=== PATIENT | male | born 2000 | race American Indian/Alaskan Native ===

== ENCOUNTER 2020-06-07 00:08 | Emergency (ER) | payer SELFPAY ==
[2020-06-07 00:24] VITALS: BP 148/71; PULSE 50
--- NOTE | 2020-06-07 00:49 | EDM.PDOC ---
ED HPI GENERAL MEDICAL PROBLEM - General Chief Complaint: General Stated Complaint: SOB Time Seen by Provider: 06/07/20 00:43 Source of Information: Reports: Patient, Family, RN Notes Reviewed History Limitations: Reports: No Limitations - History of Present Illness INITIAL COMMENTS - FREE TEXT/NARRATIVE: 19-year-old gentleman presents emergency department with a complaint of panic attacks and anxiety, he has a history of this he has had a couple panic attacks in the past however this was quite severe felt like his heart was beating through his chest short of breath that he was going to . He feels better now has calm down some - Related Data Allergies Allergy/AdvReac Type Severity Reaction Status Date / Time No Known Allergies Allergy Verified 06/07/20 00:12 Home Meds: Home Meds Albuterol [Ventolin HFA] 2 puff INH Q6H 08/20/14 [History] Loratadine 10 mg PO DAILY 08/20/14 [History] Past Medical History Psychiatric History: Reports: Anxiety, Panic Attack Dermatologic History: Reports: Eczema Other Dermatologic History: severe seasonal and environmental allergies Social & Family History - Tobacco Use Tobacco Use Status *Q: Former Tobacco User Used Tobacco, but Quit: Yes Month/Year Tobacco Last Used: 03/2018 Second Hand Smoke Exposure: Yes - Caffeine Use Caffeine Use: Reports: Energy Drinks, Soda, Tea - Recreational Drug Use Drug Use in Last 12 Months: No Recreational Drug Type: Reports: Marijuana/Hashish Recreational Drug Use Frequency: Socially ED ROS GENERAL - Review of Systems Review Of Systems: See Below Constitutional: Reports: No Symptoms HEENT: Reports: No Symptoms Respiratory: Reports: Shortness of Breath Cardiovascular: Reports: Chest Pain, Dyspnea on Exertion, Palpitations ED EXAM, GENERAL - Physical Exam Exam: See Below Exam Limited By: No Limitations General Appearance: Alert, WD/WN, No Apparent Distress Respiratory/Chest: No Respiratory Distress, Lungs Clear, Normal Breath Sounds, No Accessory Muscle Use, Chest Non-Tender Cardiovascular: Regular Rate, Rhythm, No Murmur GI/Abdominal: Soft, Non-Tender Course - Vital Signs Last Recorded V/S: Last Vital Signs Temp 98.3 F 06/07/20 00:23 Pulse 50 L 06/07/20 00:23 Resp 16 06/07/20 00:23 BP 148/71 H 06/07/20 00:23 Pulse Ox 100 06/07/20 00:23 - Orders/Labs/Meds Orders: Active Orders 24 hr Category Date Time Status LORazepam [Ativan] Med 06/07/20 00:46 Once 0.5 mg PO ONETIME ONE Medication Orders Lorazepam (Lorazepam 0.5 Mg Tab) 0.5 mg PO ONETIME ONE Stop: 06/07/20 00:47 Meds: Medications Generic Name Dose Route Start Last Admin Trade Name Jaelyn PRN Reason Stop Dose Admin Lorazepam 0.5 mg 06/07/20 00:46 Lorazepam 0.5 Mg Tab PO 06/07/20 00:47 ONETIME ONE Departure - Departure Time of Disposition: 00:49 Disposition: Home, Self-Care 01 Condition: Fair Clinical Impression: Panic attack - Discharge Information Instructions: Panic Attack, [id number] Referrals: PCP,None [Primary Care Provider] - Additional Instructions: Try a half a tablet to full tablet as needed whenever your symptoms become severe, please followup with your primary care provider in 3-5 days if not better, please call return to the emergency department with worsening of symptoms. Sepsis Event Note (ED) - Evaluation Sepsis Screening Result: No Definite Risk - Focused Exam Vital Signs: Vital Signs Temp Pulse Resp BP Pulse Ox 06/07/20 00:23 98.3 F 50 L 16 148/71 H 100 - My Orders Last 24 Hours: My Active Orders 06/07/20 00:46 LORazepam [Ativan] 0.5 mg PO ONETIME ONE - Assessment/Plan Last 24 Hours: My Active Orders 06/07/20 00:46 LORazepam [Ativan] 0.5 mg PO ONETIME ONE Plan: Assessment Acuity = acute Site and laterality = panic attacks Etiology = unknown Manifestations = palpitations, dyspnea now resolved Location of injury = Home Lab values = none Plan Counseled on anxiety, prescription written for Ativan 1 mg p.o. 3 times daily as needed total #10 follow-up primary care for further evaluation This note was dictated using [employer] voice recognition software please call with any questions on syntax or grammar.
[2020-06-07] MEDS: LORazepam 0.5 MG Tab PO ONE (00:51)
== END 2020-06-07 01:02 | disposition home or self-care (01) ==
LOC: JP.ED 00:08
DX: F41.0 Panic disorder [episodic paroxysmal anxiety] (principal); Z87.891 Personal history of nicotine dependence
CPT/HCPCS: 99283; A9270

== ENCOUNTER 2020-07-15 13:45 | Emergency (ER) | payer OTHER ==
[2020-07-15 14:04] VITALS: BP 145/65; PULSE 61
[2020-07-15] MEDS ORDERED: Ketorolac 60 MG/2 ML SDV IM ONE (14:17)
--- NOTE | 2020-07-15 14:20 | EDM.PDOC ---
ED HPI GENERAL MEDICAL PROBLEM - General Chief Complaint: Genitourinary Problem Stated Complaint: GROIN PAIN Time Seen by Provider: 07/15/20 14:10 Source of Information: Reports: Patient, RN Notes Reviewed History Limitations: Reports: No Limitations - History of Present Illness INITIAL COMMENTS - FREE TEXT/NARRATIVE: 19-year-old gentleman presents emergency department today with complaint of left testicular pain, he states is been there for about 2 days it has been a couple days since he has had unprotected intercourse. He has not had any fevers no drainage no trauma - Related Data Allergies Allergy/AdvReac Type Severity Reaction Status Date / Time No Known Allergies Allergy Verified 07/15/20 13:57 Home Meds: Home Meds NK [No Known Home Meds] 07/15/20 [History] Past Medical History Psychiatric History: Reports: Anxiety, Panic Attack Dermatologic History: Reports: Eczema Other Dermatologic History: severe seasonal and environmental allergies Social & Family History - Caffeine Use Caffeine Use: Reports: Energy Drinks, Soda, Tea ED ROS GENERAL - Review of Systems Review Of Systems: See Below Constitutional: Reports: No Symptoms GI/Abdominal: Reports: No Symptoms : Reports: Other (Left testicular pain). Denies: Discharge, Dysuria, Frequency ED EXAM, RENAL/ - Physical Exam Exam: See Below Text/Narrative:: Examination of the genitalia Gurmeet stage V male circumcised I do feel hydrocele left testicle there is no change in pain with elevation of the testicle no lesions noted Exam Limited By: No Limitations General Appearance: Alert, WD/WN, No Apparent Distress Respiratory/Chest: No Respiratory Distress Course - Vital Signs Last Recorded V/S: Last Vital Signs Temp 96.8 F L 07/15/20 14:03 Pulse 61 07/15/20 14:03 Resp 14 07/15/20 14:03 BP 145/65 H 07/15/20 14:03 Pulse Ox 99 07/15/20 14:03 - Orders/Labs/Meds Orders: Active Orders 24 hr Category Date Time Status Scrotal Duplex Ltd [US] Stat Exams 07/15/20 15:20 Taken Scrotum and Contents [US] Stat Exams 07/15/20 14:17 Taken cefTRIAXone [Rocephin] Med 07/15/20 16:00 Once 250 mg IM ONETIME ONE Meds: Medications Discontinued Medications Generic Name Dose Route Start Last Admin Trade Name Freq PRN Reason Stop Dose Admin Ketorolac Tromethamine 60 mg 07/15/20 14:17 07/15/20 14:26 Ketorolac 60 Mg/2 Ml Sdv IM 07/15/20 14:18 60 mg ONETIME ONE Administration Departure - Departure Time of Disposition: 16:02 Disposition: Home, Self-Care 01 Condition: Fair Clinical Impression: Varicocele - Discharge Information Instructions: Varicocele Referrals: PCP,None [Primary Care Provider] - Forms: ED Department Discharge Additional Instructions: Take full course of antibiotics, please followup with your primary care provider in 3-5 days if not better, please call return to the emergency department with worsening of symptoms. Recommend calling the [facility] in [place] for an appointment time if not better Sepsis Event Note (ED) - Evaluation Sepsis Screening Result: No Definite Risk - Focused Exam Vital Signs: Vital Signs Temp Pulse Resp BP Pulse Ox 07/15/20 14:03 96.8 F L 61 14 145/65 H 99 - My Orders Last 24 Hours: My Active Orders 07/15/20 14:17 Scrotum and Contents [US] Stat 07/15/20 15:20 Scrotal Duplex Ltd [US] Stat 07/15/20 16:00 cefTRIAXone [Rocephin] 250 mg IM ONETIME ONE - Assessment/Plan Last 24 Hours: My Active Orders 07/15/20 14:17 Scrotum and Contents [US] Stat 07/15/20 15:20 Scrotal Duplex Ltd [US] Stat 07/15/20 16:00 cefTRIAXone [Rocephin] 250 mg IM ONETIME ONE Plan: Assessment Acuity = acute Site and laterality = varicocele left testicle Etiology = unknown Manifestations = none Location of injury = Home Lab values = ultrasound shows varicocele no epididymitis Plan Given his sexual history concerned about STDs have seen a recent increase in the amount of chlamydia and gonorrhea in population in young people elected to treat empirically with 250 mg Rocephin IM x1 and doxycycline 100 mg p.o. twice daily x10 days follow-up primary care 3 to 5 days if no improvement This note was dictated using [employer] recognition software please call with any questions on syntax or grammar.
[2020-07-15] MEDS ORDERED: cefTRIAXone 500 MG Vial IM ONE (16:00)
--- NOTE | 2020-07-17 09:35 | US ---
Scrotum and Contents, Scrotal Duplex Ltd CLINICAL HISTORY: Left testicle pain FINDINGS: Doppler spectra shows normal flow to both testes. The right testicle measures 5.0 x 1.9 x 2.9 cm. The right epididymis has a normal appearance. There is a small hydrocele The left testicle measures 5.0 x 1.8 x 2.7 cm. The left epididymis has a normal appearance. There is a left-sided varicocele IMPRESSION: Small right hydrocele Left-sided varicocele Normal-appearing testicles
== END 2020-07-15 16:37 | disposition home or self-care (01) ==
LOC: JP.ED 13:45
DX: I86.1 Scrotal varices (principal)
CPT/HCPCS: 76870; 93976; 96372; 99283; 99284; J0696; J1885

== ENCOUNTER 2020-10-15 22:31 | Emergency (ER) | payer SELFPAY ==
[2020-10-15 22:49] VITALS: BP 124/47; PULSE 53
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
--- NOTE | 2020-10-16 10:56 | CR ---
Forearm 2V Rt CLINICAL HISTORY: Pain FINDINGS: There is no acute fracture within the forearm. IMPRESSION: Negative right forearm.
== END 2020-10-15 23:40 | disposition home or self-care (01) ==
LOC: JP.ED 22:31
DX: S50.11XA Contusion of right forearm, initial encounter (principal); Z72.0 Tobacco use; Y04.0XXA Assault by unarmed brawl or fight, initial encounter
CPT/HCPCS: 73090-26-RT; 73090-RT; 99284-25

== ENCOUNTER 2020-11-21 00:26 | Emergency (ER) | payer SELFPAY ==
[2020-11-21] MEDS ORDERED: hydrOXYzine HCl 25 MG Tab PO ONE (00:57)
[2020-11-21 00:59] VITALS: BP 134/84; PULSE 64
--- NOTE | 2020-11-21 01:05 | EDM.PDOCBH ---
ED HPI GENERAL MEDICAL PROBLEM - General Chief Complaint: Behavioral/Psych Stated Complaint: PANIC ATTACK Time Seen by Provider: 11/21/20 00:40 Source of Information: Reports: Patient, Family History Limitations: Reports: No Limitations - History of Present Illness INITIAL COMMENTS - FREE TEXT/NARRATIVE: 19-year-old male with chronic anxiety, is under a lot of stress because he has a court date coming up in January that may result in fdc time. He was taking hydroxyzine on a as needed basis and ran out 3 days ago, they have been working on getting him an appointment but do not have a refill yet. No chest pain or shortness of breath, just having difficulty sleeping and relative uneasiness. Onset: Gradual Duration: Chronic Associated Symptoms: Reports: No Other Symptoms. Denies: Confusion, Chest Pain, Headaches, Nausea/Vomiting, Shortness of Breath - Related Data Allergies Allergy/AdvReac Type Severity Reaction Status Date / Time No Known Allergies Allergy Verified 11/21/20 00:55 Home Meds: Home Meds hydrOXYzine HCL [hydrOXYzine] 50 mg IM Q6H 11/21/20 [History] Past Medical History - Past Health History Medical/Surgical History: Denies Medical/Surgical History Psychiatric History: Reports: Anxiety, Panic Attack Dermatologic History: Reports: Eczema Other Dermatologic History: severe seasonal and environmental allergies Social & Family History - Tobacco Use Tobacco Use Status *Q: Never Tobacco User - Caffeine Use Caffeine Use: Reports: Coffee, Tea - Recreational Drug Use Recreational Drug Use: No ED ROS GENERAL - Review of Systems Review Of Systems: See Below Constitutional: Denies: Fever, Chills HEENT: Denies: Vision Change Respiratory: Denies: Shortness of Breath Cardiovascular: Denies: Chest Pain, Palpitations GI/Abdominal: Denies: Nausea, Vomiting Neurological: Reports: Dizziness. Denies: Headache Psychiatric: Reports: Anxiety, Other (Difficulty sleeping, insomnia) ED EXAM, BEHAVIORAL HEALTH - Physical Exam Exam: See Below Exam Limited By: No Limitations General Appearance: Alert, No Apparent Distress, Anxious Eye Exam: Bilateral Eye: Normal Inspection Head: Atraumatic Neck: Supple, Non-Tender Respiratory/Chest: Lungs Clear Cardiovascular: Regular Rate, Rhythm. No: Tachycardia Extremities: Normal Inspection Neurological: Alert, Normal Mood/Affect Psychiatric: Flat Affect COURSE, BEHAVIORAL HEALTH COMP - Course Vital Signs: Last Vital Signs Temp 97.6 F 11/21/20 01:00 Pulse 64 11/21/20 01:00 Resp 16 11/21/20 01:00 BP 134/84 11/21/20 01:00 Pulse Ox 99 11/21/20 01:00 Orders, Labs, Meds: Medications Discontinued Medications Generic Name Dose Route Start Last Admin Trade Name Jaelyn PRN Reason Stop Dose Admin Hydroxyzine HCl 25 mg 11/21/20 00:57 11/21/20 01:11 Hydroxyzine Hcl 25 Mg Tab PO 11/21/20 00:58 25 mg ONETIME ONE Administration Re-Assessment/Re-Exam: Patient was given 1 25 mg oral dose of hydroxyzine, and a prescription for 10 additional doses without refill. He needs to establish primary care for any further refills. Departure - Departure Time of Disposition: 01:13 Disposition: Home, Self-Care 01 Clinical Impression: Anxiety - Discharge Information Instructions: Managing Anxiety, Adult Referrals: PCP,None [Primary Care Provider] - Forms: ED Department Discharge Care Plan Goals: Take hydroxyzine as directed no more than 3 times daily, and recheck with her primary provider sometime in the next week to establish further care or medications. Sepsis Event Note (ED) - Focused Exam Vital Signs: Vital Signs Temp Pulse Resp BP Pulse Ox 11/21/20 01:00 97.6 F 64 16 134/84 99 11/21/20 00:54 97.6 F 64 134/84 99
== END 2020-11-21 01:17 | disposition home or self-care (01) ==
LOC: JP.ED 00:26
DX: F41.9 Anxiety disorder, unspecified (principal)
CPT/HCPCS: 99283; A9270

== ENCOUNTER 2021-12-05 15:45 | Emergency (ER) | payer SELFPAY ==
[2021-12-05 16:18] VITALS: BP 136/80; PULSE 73
== END 2021-12-05 17:46 | disposition home or self-care (01) ==
LOC: JP.ED 15:45
DX: J30.89 Other allergic rhinitis (principal); J06.9 Acute upper respiratory infection, unspecified; F17.210 Nicotine dependence, cigarettes, uncomplicated; Z20.822 Contact with and (suspected) exposure to COVID-19; Z88.8 Allergy status to other drugs, medicaments and biological substances; Z86.16 Personal history of COVID-19
CPT/HCPCS: 87081; 87880-QW; 99283; U0002

== ENCOUNTER 2022-05-12 16:07 | Emergency (ER) | payer SELFPAY ==
[2022-05-12] MEDS ORDERED: Sodium Chloride 0.9% 10 ML Syringe FLUSH PRN (16:36)
[2022-05-12 17:58] VITALS: BP 130/107; PULSE 51
== END 2022-05-12 17:59 | disposition home or self-care (01) ==
LOC: JP.ED 16:07
DX: R07.89 Other chest pain (principal); R03.0 Elevated blood-pressure reading, without diagnosis of hypertension; F17.210 Nicotine dependence, cigarettes, uncomplicated; Z88.8 Allergy status to other drugs, medicaments and biological substances; Z86.16 Personal history of COVID-19
CPT/HCPCS: 36415; 80048; 83735; 84484; 85025; 93005; 99285; J3490

== ENCOUNTER 2022-05-14 16:07 | Emergency (ER) | payer SELFPAY | END 2022-05-14 17:55 | disposition left against medical advice (07) | LOC: JP.ED 16:07 | DX: Z53.21 Procedure and treatment not carried out due to patient leaving prior to being seen by health care provider (principal) ==

== ENCOUNTER 2022-12-17 02:37 | Emergency (ER) | payer MEDICAID ==
[2022-12-17 03:10] VITALS: BP 145/92; PULSE 84
== END 2022-12-17 04:37 | disposition home or self-care (01) ==
LOC: JP.ED 02:37
DX: J30.2 Other seasonal allergic rhinitis (principal); F17.210 Nicotine dependence, cigarettes, uncomplicated; Z88.8 Allergy status to other drugs, medicaments and biological substances; Z86.16 Personal history of COVID-19; Z20.822 Contact with and (suspected) exposure to COVID-19
CPT/HCPCS: 87651-QW; 87804; 87804-59; 99283; U0002

== ENCOUNTER 2023-03-23 17:36 | Emergency (ER) | payer MEDICAID ==
[2023-03-23 18:51] LABS: BASOPHILS ABSOLUTE AUTO 0.07 K/uL (0.00-0.10); BASOPHILS PERCENT AUTO 1.1 % (0.1-1.3); EOSINOPHILS ABSOLUTE AUTO 0.27 K/uL (0.00-0.40); EOSINOPHILS PERCENT AUTO 4.2 % (0.0-5.4); HEMATOCRIT 43.2 % (38.4-49.7); HEMOGLOBIN 14.8 g/dL (12.9-16.9); IMMATURE GRAN PERCENT AUTO 0.2 % (0.0-0.7); LYMPHOCYTES ABSOLUTE AUTO 2.29 K/uL (0.8-3.3); LYMPHOCYTES PERCENT AUTO 35.9 % (11.4-47.7); MEAN CORPUSCULAR HEMOGLOBIN 27.8 pg (31.6-35.5); MEAN CORPUSCULAR HGB CONC 34.3 g/dL (31.6-35.5); MEAN CORPUSCULAR VOLUME 81.2 fL (81.4-99.0); MONOCYTES ABSOLUTE AUTO 0.44 K/uL (0.20-0.90); MONOCYTES PERCENT AUTO 6.9 % (3.3-12.6); NEUTROPHILS ABSOLUTE AUTO 3.29 K/uL (1.0-7.6); NEUTROPHILS PERCENT AUTO 51.7 % (40.0-78.1); PLATELET COUNT,PLT 204 K/uL (130-375); RED BLOOD CELL COUNT 5.32 M/uL (4.14-5.76); WHITE BLOOD CELL COUNT,WBC 6.4 K/uL (3.2-11.0)
[2023-03-23 18:54] LABS: IMMATURE GRAN ABSOLUTE AUTO 0.01 K/uL (0.00-0.23)
[2023-03-23 19:14] LABS: A/G RATIO 1.5 (1.2-2.2); ALANINE AMINOTRANSFERASE,ALT 22 U/L (12-78); ALBUMIN 4.4 g/dL (3.4-5.0); ALKALINE PHOSPHATASE 88 U/L (46-116); ANION GAP 8.1 mmol/L (5.0-14.0); ASPARTATE AMNIOTRANSFERASE,AST 16 U/L (15-37); BILIRUBIN TOTAL 0.4 mg/dL (0.2-1.0); BLOOD UREA NITROGEN,BUN 11 mg/dL (7-18); CALCIUM 8.7 mg/dL (8.5-10.1); CARBON DIOXIDE,CO2 29 mmol/L (21-32); CHLORIDE,CL 103 mmol/L (100-108); CREATININE 0.9 mg/dL (0.8-1.3); EST CRCL DRUG DOSING (CG) 111.44 mL/min; ESTIMATED GFR 124 mL/min (>60); GLUCOSE RANDOM 82 mg/dL (74-106); PROTEIN TOTAL,TP 7.3 g/dL (6.4-8.2); SODIUM,NA 140 mmol/L (140-148); TROPONIN I HIGH SENSITIVITY 8.2 pg/mL (<=60.3)
[2023-03-23 19:23] VITALS: BP 125/72; PULSE 50
== END 2023-03-23 19:49 | disposition home or self-care (01) ==
LOC: JP.ED 17:36
DX: R07.89 Other chest pain (principal); J45.909 Unspecified asthma, uncomplicated; Z86.16 Personal history of COVID-19; Z88.8 Allergy status to other drugs, medicaments and biological substances; Z79.899 Other long term (current) drug therapy
CPT/HCPCS: 36415; 71045; 71045-26; 80053; 84484; 85025; 85379; 86140; 93005; 99285

== ENCOUNTER 2023-07-04 23:32 | Emergency (ER) | payer MEDICAID ==
[2023-07-04 23:44] VITALS: BP 143/86; PULSE 67
== END 2023-07-05 00:35 | disposition home or self-care (01) ==
LOC: JP.ED 23:32
DX: K08.89 Other specified disorders of teeth and supporting structures (principal); F17.210 Nicotine dependence, cigarettes, uncomplicated; Z86.16 Personal history of COVID-19
CPT/HCPCS: 99282

== ENCOUNTER 2024-01-03 19:17 | Emergency (ER) | payer MEDICAID ==
[2024-01-03 21:26] VITALS: BP 136/84; PULSE 84
== END 2024-01-03 22:06 | disposition home or self-care (01) ==
LOC: JP.ED 19:17
DX: L25.9 Unspecified contact dermatitis, unspecified cause (principal); Z87.891 Personal history of nicotine dependence; Z86.16 Personal history of COVID-19; Z91.048 Other nonmedicinal substance allergy status
CPT/HCPCS: 99282